=== PATIENT | male | born 1930 ===

== ENCOUNTER 2018-06-01 11:15 | Outpatient (CLI) | payer OTHER | END 2018-06-01 15:51 | disposition home or self-care (01) | LOC: RAD 11:15 | DX: J00 Acute nasopharyngitis [common cold] (principal); Z85.118 Personal history of other malignant neoplasm of bronchus and lung ==

== ENCOUNTER 2019-04-28 13:38 | Outpatient (CLI) | payer OTHER | END 2019-04-28 13:46 | disposition home or self-care (01) | LOC: TOM 13:38 | DX: C34.90 Malignant neoplasm of unspecified part of unspecified bronchus or lung (principal) ==